=== PATIENT | female | born 1985 | race American Indian/Alaskan Native ===

== ENCOUNTER 2017-10-22 15:19 | Emergency (ER) | payer OTHER ==
[2017-10-22] MEDS ORDERED: NORCO 5/325 PO ONE (17:17)
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
[2017-10-22 17:48] LABS: HCG Qualitative,Urine Negative (Negative)
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
--- NOTE | 2017-10-22 19:03 | Cat Scan Report ---
FINAL REPORT PROCEDURE: CT CERVICAL SPINE WO CON TECHNIQUE: Computerized tomography of the cervical spine was performed from the skull base to T1 without contrast material. HISTORY: Trauma COMPARISON: No prior studies are available for comparison. FINDINGS: No fracture or subluxation is seen. The prevertebral soft tissues appear normal. Disc spaces are well preserved. No focal disc herniation or spinal stenosis is visualized. Bone density appears normal. Incidental note is made of a nonspecific nodular density projecting anteriorly from the isthmus of the thyroid gland measuring 1.9 x 1.4 centimeters. IMPRESSION: No evidence of fracture or subluxation. No acute abnormality is identified. Nonspecific nodular density projects anteriorly from the isthmus of the thyroid gland. Consider follow-up thyroid ultrasound for further evaluation. This could be done on a nonemergent basis..
--- NOTE | 2017-10-22 19:42 | XRay Report ---
FINAL REPORT PROCEDURE: XR SPINE THORACIC 2V TECHNIQUE: Thoracic spine radiographs, including AP and lateral projections. CPT 86360 HISTORY: Trauma. Pain. COMPARISON: No prior studies are available for comparison. FINDINGS: No fracture or subluxation visualized. Disc spaces appear well preserved. Density appears normal. Posterior elements appear to be intact. Minimal thoracic scoliosis convex the left apex at T9. IMPRESSION: Minimal scoliosis otherwise negative exam. No acute abnormality is seen..
[2017-10-22] MEDS ORDERED: MOTRIN PO ONE (19:44)
--- NOTE | 2017-10-22 19:49 | XRay Report ---
FINAL REPORT PROCEDURE: XR CHEST ROUTINE 2V TECHNIQUE: PA and lateral chest radiographs were obtained. CPT 59407 HISTORY: Trauma. Pain. COMPARISON: No prior studies are available for comparison. FINDINGS: Heart: Normal. Mediastinum/Vessels: Normal. Lungs/Pleural space: Normal. Bony thorax: No acute osseous abnormality. Other: IMPRESSION: Negative examination.
--- NOTE | 2017-10-22 19:51 | XRay Report ---
FINAL REPORT PROCEDURE: XR HAND 3+V RT TECHNIQUE: RIGHT hand radiographs, AP, lateral, and oblique views. CPT 59438-[place] HISTORY: Trauma. Pain. COMPARISON: No prior studies are available for comparison. FINDINGS: Fracture (s) and/or Dislocation(s): None . Alignment: Normal . Joint space(s): Normal . Soft tissues: Normal . Bone mineralization: Normal . Foreign bodies: None . IMPRESSION: Negative examination.
[2017-10-22] MEDS ORDERED: ZOFRAN ODT PO ONE (21:38)
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
[2017-10-22 22:43] VITALS: BP 118/74
== END 2017-10-22 22:20 | disposition home or self-care (01) ==
LOC: ED 15:19
DX: S16.1XXA Strain of muscle, fascia and tendon at neck level, initial encounter (principal); M79.644 Pain in right finger(s); R51 Headache; V49.9XXA Car occupant (driver) (passenger) injured in unspecified traffic accident, initial encounter; Y93.89 Activity, other specified; Y92.89 Other specified places as the place of occurrence of the external cause; Y99.8 Other external cause status
CPT/HCPCS: 70450; 71046; 72070; 72125; 81025; Q0162